=== PATIENT | male | born 1995 | race Caucasian/White ===

== ENCOUNTER 2025-03-10 18:03 | Emergency (ER) | payer BC, OTHER ==
--- OUTSIDE RECORDS SUMMARY | 2025-03-10 18:07 | XMS REPORT | Continuity of Care Document ---
Author Name Unknown Address [address] [place] [address] [facility] [place] Address [address] [place] [address] Care Team Providers Care Radio Mechanic Helper Name Role Phone RADHA DAVIS Primary Care Physician Unavailab le RADHA DAVIS Attending Clinician Unavailable Doctor Unassigned, Childress Attending Clinician U navailChi Alexander Attending Clinician Radha Velez Attending Clinician [phone] Lab, Ang - Db Attending Clinician Unavailable Payers Payer Name Policy Type Policy Number Effective Date Expirati on Date Source [facility] [id number] 2022 00:00:00 Allergies, Adverse Reactions, Alerts Allergy Name Allergy Type Status Severity Reaction(s) Onset Date Inactive Date Treating Clinician Comments Source NO KNOWN ALLERGIE S Drug Class Active [facility] Social History Social Habit Start Date Stop Date Quantity Comments Source [facility] function 2024-07-11 00:00:00 2024-07-11 00:00:00 [facility] Sex assigned at 1995 00:00:00 1995 00:00:00 [facility] Smoking Status Start Date Stop Date Source Tobacco smoking consumption unknown [facility] Medications Ordered Medication Name Filled Medication Name Start Date Stop Date Current Medication? Ordering Clinician Indication Dosage Frequency Signature (SIG) Comments Components Source ketorolac (TORADOL) injection 30 mg 07-12 01:23: 00 07-12 01:29 :00 No [id number] 30mg 30 mg, Intramuscu lar, ONCE, 1 dose, On Symone 07/11/24 at 2030, Routine [facility] tirzepatide , weight loss, (ZEPBOUND) 2.5 mg/0.5 mL subcutaneou s injection 07-11 00:00: 00 Yes [id number] 2.5mg inject 2.5 mg under the skin weekly. [facility] celecoxib 100 mg capsule 07-11 00:00: 00 07-22 04:59 :00 No [id number] 100mg Take 1 capsule by mouth 2 (two) times daily with meals as needed for Pain for up to 10 days. [facility] methocarbam oL 500 mg tablet 07-11 00:00: 00 07-17 04:59 :00 No [id number] 500mg Take 1 tablet by mouth 4 (four) times daily as needed for Pain (scale 7-10) for up to 5 days. [facility] Vital Signs Vital Name Observation Time Observation Value Comments S ource Systolic blood pressure 2024-07-12 01:17:00 114 mm[Hg] [facility] acute hospital Diastolic blood pressure 2024-07-12 01:17:00 78 mm[Hg] General acute hospital Heart rate 2024-07-12 01:17:00 111 /min [facility] Body temperature 2024-07-12 01:17:00 36.56 Geovanna [facility] Respiratory rate 2024-07-12 01:17:00 17 /min [facility] Body weight 2024-07-12 01:17:00 152 kg [facility] BMI 2024-07-12 01:17:00 44.21 kg/m2 [facility] Oxygen saturation in Arterial blood by Pulse oximetry 2024-07-12 01:17:00 95 /min General acute hospital Systolic blood pressure 2024-07-11 18:10:00 103 mm[Hg] General acute hospital Diastolic blood pressure 2024-07-11 18:10:00 69 mm[Hg] General acute hospital Heart rate 2024-07-11 18:10:00 88 /min [facility] Body temperature 2024-07-11 18:10:00 37.17 Geovanna [facility] Respiratory rate 2024-07-11 18:10:00 18 /min [facility] Body height 2024-07-11 18:10:00 185.4 cm [facility] Body weight 2024-07-11 18:10:00 151.229 kg [facility] BMI 2024-07-11 18:10:00 43.99 kg/m2 [facility] Oxygen saturation in Arterial blood by Pulse oximetry 2024-07-11 18:10:00 97 /min [place] [facility] Procedures Procedure Date / Time Performed Performing Clinicia n Source COMP. METABOLIC PANEL (27302) 2024-07-11 18:46:00 Radha Davis [facility] CBC WITH DIFF 2024-07-11 18:46:00 Radha Davis [facility] Encounters Start Date/Time End Date/Time Encounter Type Admission Type Attending Clinicians Care Facility Care Department Encounter ID Source 2025-01-13 10:00:00 2025-01-13 10:00:00 Outpatient R RADHA DAVIS [facility] [id number] [facility] 2024-07-19 00:00:00 2024-07-19 10:05:58 Patient Secure Msg Doctor Unassigned, Childress Doctor Unassigned, Childress [facility] [id number] [facility] 2024-07-11 20:00:00 2024-07-11 20:28:46 [facility] [place] [facility] [id number] [id number] [id number] [id number] [facility] 2024-07-11 14:00:00 2024-07-11 14:15:00 Residential Care Officer Visit Lab, Ang - Db Radha Davis Lab, Ang - [facility] [id number] [id number] [id number] [facility] 2024-07-11 13:00:00 2024-07-11 13:44:08 Outpatient R RADHA DAVIS [facility] [id number] [facility] 2024-07-11 13:00:00 2024-07-11 13:44:08 [facility] [id number] [id number] [id number] [facility] 2024-07-11 00:00:00 2024-07-11 13:40:56 Letter (Out) Radha Davis [facility] [id number] [id number] [id number] [id number] [facility] Results Test Description Test Time Test Comments Results Result Co mments Source [facility] with [id number] 21:28:41* Test Item Value Reference Range Interpretation Comme nts WBC (test code = 6690-2) 11.51 4.20-10.70 H RBC (test code = 789-8) 5.20 4.26-5.52 HGB (test code = 718-7) 15.3 g/dL 12.2-16.4 HCT (test code = 4544-3) 47.5 % 38.4-49.3 MCV (test code = 787-2) 91.3 fL 81.7-95.6 MCH (test code = 785-6) 29.4 pg 26.1-32.7 MCHC (test code = 786-4) 32.2 g/dL 31.2-35.0 RDW-SD (test code = 85761-8) 43.5 fL 38.5-51.6 RDW-CV (test code = 788-0) 13.0 % 12.1-15.4 PLT (test code = 777-3) 184 150-328 MPV (test code = 91522-5) 11.5 fL 9.8-13.0 NRBC/100 WBC (test code = 1639281105) 0.0 0.0-10.0 NRBC x10^3 (test code = 0324354809) See_Comment [Automated messa ge] The system which generated this result transmitted reference range: 10*3/?L. The reference range was not used to interpret this result as normal/abnormal. GRAN MAT (NEUT) % (test code = 770-8) 83.0 % IMM GRAN % (test code = 8989008765) 0.30 % LYMPH % (test code = 736-9) 9.7 % MONO % (test code = 5905-5) 6.3 % EOS % (test code = 713-8) 0.4 % BASO % (test code = 706-2) 0.3 % GRAN MAT x10^3(ANC) (test code = 0640845396) 9.54 10*3/uL 1.99-6.95 H IMM GRAN x10^3 (test code = 2632599021) 0.03 10*3/uL 0.00-0.06 LYMPH x10^3 (test code = 731-0) 1.12 10*3/uL 1.09-3.23 MONO x10^3 (test code = 742-7) 0.73 10*3/uL 0.36-1.02 EOS x10^3 (test code = 711-2) 0.05 10*3/uL 0.06-0.53 L BASO x10^3 (test code = 704-7) 0.04 10*3/uL 0.01-0.09 Lab Interpretation (test code = 15812-7) Abnormal [facility] Notes Date/Time Note Provider Source 2024-07-11 14:00:00 Images from the original note were not included. Venipuncture collection performed by clean technique on the left anticubitus. Total of 1 attempts were made. Slight pressure and a bandage/dressing were applied to the site(s). The patient experienced no complications. The following specimens were processed according to instructions and sent to [facility] laboratories per lab order on 07/11/2024 : LT BLUE SST 2 RED LAV 2 PPT DK GREEN (LiHep) DK GREEN (SodH) MORENO DK BLUE (K2) DK BLUE (S) ACD Blood Culture NIPT/NTD [facility] 2024-07-11 13:00:00 Addended by: MARY JANE DAVIS DNP-RADHA FERNANDEZ on: 07/13/2024 10:23 PM Modules accepted: Orders [facility]
[2025-03-10] MEDS ORDERED: ASPIRIN 81 MG CHEWABLE TABLET ONE (18:16)
[2025-03-10 18:29] LABS: Absolute Basophils 0.1 K/uL (0-0.5); Absolute Eosinophils 0.1 K/uL (0-0.5); Absolute Lymphocytes (CBC) 1.9 K/uL (0.7-4.9); Absolute Monocytes 0.6 K/uL (0.1-1.3); Absolute Neutrophil 4.2 K/uL (1.8-8.0); Eosinophils % 0.9 % (0-4.4); Hematocrit 45.2 % (39.6-49.0); Hemoglobin 15.6 g/dL (13.6-17.9); Lymphocytes % 27.9 % (15.3-44.8); MCH 30.4 pg (27.0-35.0); MCHC 34.6 g/dL (32.0-36.0); MCV 87.8 fL (80-100); MPV 9.4 fL (7.6-11.3); Monocytes % 9.1 % (3.3-12.3); Neutrophils % 61.1 % (41.7-73.7); Nucleated Red Blood Cells % 0.1 % (0-0); Platelets 185 thou/uL (152-406); RBC Red Blood Cell Count 5.14 M/uL (4.33-5.43); Red Cell Distribution Width 13.5 % (12.1-15.2)
[2025-03-10 18:34] LABS: PT Prothrombin Time 10.8 SECONDS (10-13.0); Protime INR 0.94
[2025-03-10 18:49] LABS: ALT/SGPT 57 U/L (16-61); AST/SGOT 22 U/L (15-37); Albumin 3.7 g/dL (3.4-5.0); Alkaline Phosphatase 61 U/L (45-117); BUN Blood Urea Nitrogen 13 mg/dL (7-18); Bicarbonate 26 mEq/L (21-32); Bilirubin Total 0.3 mg/dL (0.2-1.0); Globulin 3.8 g/dL (2.3-3.5); Glomerular Filtration Rate 94 ml/min (=/>90); Glucose Level 110 mg/dL (74-106); NT PRO-BNP 17 pg/mL (<125); Protein, Total 7.5 g/dL (6.4-8.2); Sodium Level 139 mEq/L (136-145); Troponin High Sensitivity 7.5 pg/mL (<58.9)
[2025-03-10 18:50] LABS: Bilirubin Direct < 0.2 mg/dL (0-0.2); Bilirubin Indirect, Calculated 0.1 mg/dL (0.2-0.8)
--- NOTE | 2025-03-10 19:09 | RAD REPORT ---
Procedure: Chest Single View HISTORY: Chest pain COMPARISON: none FINDINGS: The lungs appear clear of acute infiltrate. No significant pleural effusion noted. The heart is normal size. IMPRESSION: No acute abnormality is displayed.
--- NOTE | 2025-03-10 19:33 | EDPHYS ---
Physician Documentation [facility] Name: Venkat Brian Age: 30 yrs Sex: Male : 1995 Arrival Date: 03/10/2025 Time: 18:03 Bed 14 Private MD: ED Physician Francesca Davies HPI: 03/10 18:16 This 30 yrs old Male presents to ER via Ambulatory with complaints of Chest Pain, kb Shortness Of Breath. 18:16 Pt is a 30 year old male who presents for chest pain that has been intermittent for 4 kb days. States he has had some shortness of breath as well. Pain was worse this morning and has subsided some. Reports family history of WA, CHF and stroke. Father had first WA in his 30s. Denies any personal medical history. Pt states he came in for the pain now because his spouse made him. . Historical: - Allergies: 18:15 No Known Allergies; ap3 - Home Meds: 18:15 None [Active]; ap3 - PMHx: 18:15 None; ap3 - Immunization history:: Client reports having NOT received the Covid vaccine. Flu vaccine is not up to date. - Infectious Disease History:: Denies. - Social history:: Smoking status: Patient denies any tobacco usage or history of. ROS: 18:14 Constitutional: As per HPI kb Exam: 18:14 Constitutional: This is a well developed, well nourished patient who is awake, alert, kb and in no acute distress. Head/Face: Normocephalic, atraumatic. ENT: Moist Mucous membranes Cardiovascular: Regular rate Respiratory: Respirations even and unlabored. No increased work of breathing. Talking in full sentences Skin: Warm, dry with normal turgor. Normal color. MS/ Extremity: Pulses equal, no cyanosis. Neurovascular intact. Full, normal range of motion. Neuro: Awake and alert, GCS 15, oriented to person, place, time, and situation. 18:26 ECG was reviewed by the Attending Physician. kb Vital Signs: 18:13 BP 149 / 94; Pulse 78; Resp 18; Temp 98.5(O); Pulse Ox 98% on R/A; Weight 149.69 kg; ap3 Height 6 ft. 1 in. ; Pain 5/10; 18:30 BP 146 / 91; Pulse 79; Resp 16; Pulse Ox 96% on R/A; db 19:10 BP 131 / 88; Pulse 81; Resp 18; Pulse Ox 98% ; rg5 18:13 Body Mass Index 43.54 (149.69 kg, 185.42 cm) ap3 18:13 Pain Scale: Adult ap3 MDM: 18:08 Medical Screening Exam initiated kb 18:14 Data reviewed: vital signs, nurses notes. kb 19:32 Differential diagnosis: acute mi, arrhythmia, abnormal electrolytes. Consideration of kb Admission/Observation Escalation of care including admission/observation considered. admission considered for chest pain, but HEART score 1. Will follow up with PCP. Management of patient was discussed with the following: Dr Davies, does not recommend repeat troponin due to pain for 4 days. Historians other than the Patient: Spouse/Significant Other: spouse. Counseling: I had a detailed discussion with the patient and/or guardian regarding the historical points, exam findings, and any diagnostic results supporting the discharge/admit diagnosis, lab results, radiology results, the need for outpatient follow up, a family practitioner, to return to the emergency department if symptoms worsen or persist or if there are any questions or concerns that arise at home. 19:33 Special discussion: I have referred the patient to see his PCP for further evaluation kb of high blood pressure. 03/10 18:12 Order name: Basic Metabolic Panel; Complete Time: 18:52 kb 03/10 18:12 Order name: CBC with Diff; Complete Time: 18:32 kb 03/10 18:12 Order name: LFT's; Complete Time: 18:52 kb 03/10 18:12 Order name: Magnesium; Complete Time: 18:52 kb 03/10 18:12 Order name: NT PRO-BNP; Complete Time: 18:52 kb 03/10 18:12 Order name: PT-INR; Complete Time: 18:39 kb 03/10 18:12 Order name: Troponin HS; Complete Time: 18:52 kb 03/10 18:12 Order name: XRAY Chest (1 view); Complete Time: 19:16 kb 03/10 18:12 Order name: Cardiac monitoring; Complete Time: 18:33 kb 03/10 18:12 Order name: EKG - Nurse/Tech; Complete Time: 18:18 kb 03/10 18:12 Order name: IV Saline Lock; Complete Time: 18:33 kb 03/10 18:12 Order name: Labs collected and sent; Complete Time: 18:33 kb 03/10 18:12 Order name: O2 Per Protocol; Complete Time: 18:17 kb 03/10 18:12 Order name: O2 Sat Monitoring; Complete Time: 18:17 kb EC:26 Rate is 69 beats/min. Rhythm is regular. QRS [place] is Normal. [place] interval is normal at kb 164 msec. QRS interval is normal at 88 msec. QT interval is normal at 394 msec. Administered Medications: 18:18 Drug: Aspirin PO Chewable Tablet 324 mg PO once; 81 mg tablets x 4 Route: PO; db 18:51 Follow up: Response: No adverse reaction db Disposition: 19:40 Co-signature as Attending Physician, Francesca Davies MD I agree with the assessment and gb1 plan of care. I reviewed the patient's care provided by the Advanced Practice Provider and agree with the diagnosis and treatment plan. Disposition Summary: 03/10/25 19:33 Discharge Ordered Notes: Location: Home kb Condition: Stable kb Diagnosis - Chest pain, unspecified kb Followup: kb - With: Emergency Department - When: As needed - Reason: Worsening of condition Followup: kb - With: Private Physician - When: 2 - 3 days - Reason: Recheck today's complaints, Continuance of care, Re-evaluation by your physician Discharge Instructions: - Discharge Summary Sheet kb - Nonspecific Chest Pain, Adult, [id number]-gt-[id number] kb Forms: - Medication Reconciliation Form kb - Antibiotic Education kb - Prescription Opioid Use kb - Patient Portal Instructions kb - Leadership Thank You Letter kb - Work release form me1 Signatures: Dispatcher [employer] EDMelba Scott FNP-C FNP-Ckb Prokisch, Amanda RN RN ap3 Elena Forrester, RN RN Francesca Dhillon MD MD gb1 Corrections: (The following items were deleted from the chart) 18:12 18:12 Chest Single View+RAD.RAD.BRZ ordered. EDDC CHRISTIANDC
--- NOTE | 2025-03-10 19:33 | ER ---
Nurse's Notes [facility] Name: Venkat Brian Age: 30 yrs Sex: Male : 1995 Arrival Date: 03/10/2025 Time: 18:03 Bed 14 Private MD: Diagnosis: Chest pain, unspecified Presentation: 03/10 18:13 Chief complaint: Patient states: he has been having mid chest pain since Monday ap3 03/07/25. patient also reports shortness of breath. patient currently rates his pain as a 5/10 on the pain scale. patient states he took 2 ASA this morning. Coronavirus screen: At this time, the client does not indicate any symptoms associated with coronavirus-19. Ebola Screen: No symptoms or risks identified at this time. Initial Sepsis Screen: Does the patient meet any 2 criteria? No. Patient's initial sepsis screen is negative. Does the patient have a suspected source of infection? No. Patient's initial sepsis screen is negative. Risk Assessment: Do you want to hurt yourself or someone else? Patient reports no desire to harm self or others. Onset of symptoms was March 07, 2025. 18:13 Method Of Arrival: Ambulatory ap3 18:13 Acuity: LUCAS 2 ap3 Triage Assessment: 18:16 General: Appears in no apparent distress. Behavior is calm, cooperative, appropriate ap3 for age. Pain: Complains of pain in chest Pain currently is 5 out of 10 on a pain scale. Pain began 03/07/25. Neuro: Level of Consciousness is awake, alert, obeys commands, Oriented to person, place, time, situation, Appropriate for age. Cardiovascular: Reports chest pain, shortness of breath. Respiratory: Airway is patent Respiratory effort is even, unlabored, Respiratory pattern is regular, symmetrical. Historical: - Allergies: 18:15 No Known Allergies; ap3 - Home Meds: 18:15 None [Active]; ap3 - PMHx: 18:15 None; ap3 - Immunization history:: Client reports having NOT received the Covid vaccine. Flu vaccine is not up to date. - Infectious Disease History:: Denies. - Social history:: Smoking status: Patient denies any tobacco usage or history of. Screenin:17 [facility] ED Fall Risk Assessment (Adult) History of falling in the last 3 months, ap3 including since admission No falls in past 3 months (0 pts) Confusion or Disorientation No (0 pts) Intoxicated or Sedated No (0 pts) Impaired Gait No (0 pts) Mobility Assist Device Used No (0 pt) Altered Elimination No (0 pt) Score/Fall Risk Level 0 - 2 = Low Risk Oriented to surroundings, Maintained a safe environment, Educated pt \T\ family on fall prevention, incl call for assistance when getting out of bed, Assessed \T\ reinforced patient's understanding of fall precautions, Hourly rounding (assess needs \T\ fall precautionary measures) done, Used ambulatory aids as needed (educated on \T\ assisted with). Abuse screen: Denies threats or abuse. Nutritional screening: No deficits noted. Tuberculosis screening: No symptoms or risk factors identified. Assessment: 18:17 Pain: Pain does not radiate. ap3 18:30 Reassessment: Patient appears in no apparent distress at this time. Patient and/or db family updated on plan of care and expected duration. Pain level reassessed. Patient is alert, oriented x 3, equal unlabored respirations, skin warm/dry/pink. General: Appears in no apparent distress. comfortable, Behavior is calm, cooperative. Pain: Complains of pain in chest. Neuro: Level of Consciousness is awake, alert, obeys commands, Oriented to person, place, time, situation. Cardiovascular: Reports chest pain. Respiratory: Airway is patent Respiratory effort is even, unlabored, Respiratory pattern is regular, symmetrical. 19:10 General: Appears in no apparent distress. comfortable, Behavior is calm, cooperative, rg5 appropriate for age. 19:10 Pain: Denies pain. Neuro: Level of Consciousness is awake, alert, obeys commands, rg5 Oriented to person, place, time, situation. Cardiovascular: Reports chest pain. Respiratory: Airway is patent Trachea midline Respiratory effort is even, unlabored, Respiratory pattern is regular, symmetrical. GI: Abdomen is round non-distended. : No signs and/or symptoms were reported regarding the genitourinary system. EENT: No signs and/or symptoms were reported regarding the EENT system. Derm: Skin is intact, Skin is dry, Skin is normal, Skin temperature is warm. Musculoskeletal: Circulation, motion, and sensation intact. Range of motion: intact in all extremities. Vital Signs: 18:13 BP 149 / 94; Pulse 78; Resp 18; Temp 98.5(O); Pulse Ox 98% on R/A; Weight 149.69 kg; ap3 Height 6 ft. 1 in. ; Pain 5/10; 18:30 BP 146 / 91; Pulse 79; Resp 16; Pulse Ox 96% on R/A; db 19:10 BP 131 / 88; Pulse 81; Resp 18; Pulse Ox 98% ; rg5 18:13 Body Mass Index 43.54 (149.69 kg, 185.42 cm) ap3 18:13 Pain Scale: Adult ap3 ED Course: 18:08 Patient arrived in ED. cj3 18:08 Mel[facility]in [facility]C [facility] kb 18:08 Francesca Davies MD is Attending Physician. kb 18:15 Triage completed. ap3 18:16 Patient has correct armband on for positive identification. Bed in low position. Call ap3 light in reach. Side rails up X 1. Adult w/ patient. Client placed on continuous cardiac and pulse oximetry monitoring. NIBP monitoring applied. front desk monitor on. Pulse ox on. NIBP on. 18:17 Elena Forrester, RN is Primary Nurse. db 18:17 Arm band placed on right wrist. Patient placed in an exam room. ap3 18:17 Patient maintains SpO2 saturation greater than 95% on room air. ap3 18:22 Initial lab(s) drawn, by me, sent to lab. Inserted saline lock: 20 gauge in right db antecubital area, using aseptic technique. Blood collected. Flushed with 10 mL NS. 18:32 XRAY Chest (1 view) In Process Unspecified. EDMS 19:38 No provider procedures requiring assistance completed. IV discontinued, bleeding rg5 controlled, No redness/swelling at site. Pressure dressing applied. 19:44 Provided Education on: post er care. rg5 Administered Medications: 18:18 Drug: Aspirin PO Chewable Tablet 324 mg PO once; 81 mg tablets x 4 Route: PO; db 18:51 Follow up: Response: No adverse reaction db Medication: 18:51 VIS not applicable for this client. db Outcome: 19:33 Discharge ordered by . kb 19:38 Discharged to home ambulatory, rg5 19:38 Condition: stable 19:38 Instructed on discharge instructions, Demonstrated understanding of instructions, Prescriptions given X 19:45 Patient left the ED. rg5 Signatures: Dispatcher [employer] EDMS Melba Holguin, SOLID TIRE FINISHER-C SOLID TIRE FINISHER-Dwightb Daniela Lopez, RN RN ap3 Elena Forrester, RN RN db Hasmukh Carmona, RN RN rg5 Hilda Dangelo 3
[2025-03-10 20:10] VITALS: TEMP 98.5
[2025-03-10 20:11] VITALS: BP 146/91; O2SAT 96
--- NOTE | 2025-03-12 12:41 | EKG ---
Test Date: 2025-03-10 Test Time: 18:14:01 Department Store Salesperson: KENNEDY MEASUREMENT RESULTS: Intervals: Rate: 69 MO: 164 QRSD: 88 QT: 368 QTc: 394 [place]: P: 31 MO: 164 QRS: 38 T: 55 INTERPRETIVE STATEMENTS: Sinus rhythm with marked sinus arrhythmia Otherwise normal ECG No previous ECG available for comparison Electronically Signed On 03-12-25 12:37:13 CDT by Fredy Werner
== END 2025-03-10 19:45 | disposition home or self-care (01) ==
LOC: ER 18:03
DX: R07.9 Chest pain, unspecified (principal); R06.02 Shortness of breath; I25.2 Old myocardial infarction; I50.9 Heart failure, unspecified
CPT/HCPCS: 36415; 71045; 80048; 80076; 83735; 83880; 84484; 85025; 85610; 93005; 99284